=== PATIENT | male | born 1985 | race Caucasian/White ===

== ENCOUNTER 2021-04-12 18:00 | Outpatient (CLI) | payer BC | END 2021-04-12 18:01 | disposition home or self-care (01) | LOC: SLEEPLAB 18:00 | PROVIDERS: ATTEND Family Medicine | DX: G47.33 Obstructive sleep apnea (adult) (pediatric) (principal); R09.89 Other specified symptoms and signs involving the circulatory and respiratory systems; R06.83 Snoring; G47.00 Insomnia, unspecified | CPT/HCPCS: 95806 ==

== ENCOUNTER 2024-02-22 13:06 | Outpatient (CLI) | payer BC, OTHER | END 2024-02-22 13:07 | disposition home or self-care (01) | LOC: SCSMRI 13:06 | PROVIDERS: ATTEND Family Medicine | DX: G44.84 Primary exertional headache (principal) | CPT/HCPCS: 70553; 76377 ==